=== PATIENT | male | born 1955 | race Caucasian/White ===

== ENCOUNTER 2017-12-14 09:49 | Outpatient (CLI) | payer OTHER ==
--- NOTE | 2017-12-14 10:28 | RAD ---
TWO VIEWS RIGHT FOOT: Comparison: None. History: Chronic foot pain. FINDINGS: Two views of the right foot shows no evidence of acute fracture or dislocation. No degenerative sharp es are seen. Soft tissue swelling is seen. IMPRESSION: No evidence of acute osseous abnormality. POS: [facility]
--- NOTE | 2017-12-14 10:29 | RAD ---
TWO VIEWS LEFT FOOT: History: Chronic foot pain. FINDINGS: Two views of the left foot shows no evidence of acute fracture or dislocation. No soft tissue swellin g is seen. No degenerative changes are present. IMPRESSION: No evidence of acute osseous abnormality. POS: [facility]
== END 2017-12-14 09:50 | disposition home or self-care (01) ==
LOC: MADLAB 09:49
PROVIDERS: ATTEND Orthopaedic Surgery
DX: M19.90 Unspecified osteoarthritis, unspecified site (principal)